=== PATIENT | male | born 1945 | race Caucasian/White ===

== ENCOUNTER 2017-10-13 15:40 | Inpatient (IN) | payer OTHER, BC ==
[~2017-10-13] VITALS: Ht 182.9 cm; Wt 71.0 kg
[~2017-10-13 15:40] MED LIST: ALENDRONATE SOD70 M2 PO; CARBAMAZEPINE100 MG PO; OXYBUTYNIN CHLO10 MG PO; PRIMIDONE250 MG PO; TEGRETOL200 MG PO
--- NOTE | 2017-10-13 16:12 | NUR ---
REC'D PT FROM AMBULANCE AAOX4. PT DENIES ANY PAIN AT THIS TIME. NO SKIN BREAK DOWN NOTED. DECREASED MOBILITY NOTED ON LEFT ARM AND LEG FROM BRAIN SURGERY. BREATHING E/U. NO SOB. WILL CONTINUE TO MONITOR.
--- NOTE | 2017-10-13 16:52 | NUR ---
SHANEKA LEMUS CALLED STATING, "I AM THE SISTER OF THE PATIENT AND POWER OF FIELD SALES MANAGER, I WANTED TO INFORM YOU GUYS THAT HE LIVES ALONE IN [place] AND I LIVE IN [place], HE HAS A HISTORY OF SEIZURES BUT IS NON-COMPLIANT AND THREW OUT HIS PRESCRIBED MEDICATIONS, HE IS UNCOOPERATIVE AND COMBATITIVE AT TIMES, MY NUMBER IS [phone]". INFORMED DR. SABILLON.
[2017-10-13 16:54] LABS: UA SPECIFIC GRAVITY 1.015 (1.005-1.035); microscopic required? YES; urine erythrocyte 3+ (NEGATIVE)
--- NOTE | 2017-10-13 17:24 | NUR ---
PT STATES, "I REFUSE ALL CARE HERE, [facility], I'M GOING HOME. EXPLAINED BENEFITS VERSUS RISKS. PATIENT STILL REQUESTS TO LEAVE." INFORMED SISTER JYOTI LEAL.
--- NOTE | 2017-10-13 17:34 | NUR ---
PT REFUSES TO SIGN AMA PAPERWORK. PT STATES "I'M NOT SIGNING ANYTHING, I'LL WAIT HERE UNTIL THE TAXI COMES AND I'M GONE, THAT'S IT" INFORMED DR. SABILLON.
--- NOTE | 2017-10-13 17:49 | NUR ---
JAYSON DE LA ROSA CALLED TO SPEAK WITH PATIENT, PATIENT NOW VERBALIZES, "OKAY, I AM WILLING TO GET ADMITTED AND STAY ONLY ONE NIGHT AND I WILL SIGN MYSELF OUT TOMORROW MORNING." INFORMED DR. SABILLON
--- NOTE | 2017-10-13 17:56 | NUR ---
INFORMED PATIENT THAT ADMISSION IS PROCESS, PT STATES, "WHAT IS THE PROBLEM, FINISH THE PROCESS, DO I HAVE TO HIT YOU OVER THE HEAD WITH MY CANE?"
--- NOTE | 2017-10-13 18:07 | NUR ---
PT WANTS TO SEE ADMITTING AND "SIGN PAPERS" FOR ADMISSION PRIOR TO GETTING AN IV STARTED, CALLED ADMITTING AND REPORTS THAT ELVIE WILL COME TO SEE PT; DR. SABILLON SPOKE WITH PT AND PT AGREEING TO BE ADMITTED FOR "ONE NIGHT"
[2017-10-13] MEDS ORDERED: TEGRETOL200 MG PO (18:20)
[2017-10-13] MEDS ORDERED: MYS250 PO (18:20)
--- NOTE | 2017-10-13 18:23 | NUR ---
INFORMED LAB THAT PT WILL BE STAYING AND LABS TO BE DRAWN BEFORE PT ADMIT UPSTAIRS, PT AWARE OF PLAN OF CARE
[2017-10-13 18:45] LABS: AMPHETAMINE QUAL UR NONE DETECTED (NEG <=1000)
[2017-10-13 19:08] LABS: BASOPHIL % 0.3 % (0-2); PLATELET COUNT 321 x10^3mcL (130-400)
[2017-10-13 19:10] LABS: RED CELL DISTRIBUTION WIDTH 14.6 % (11.5-14.5)
--- NOTE | 2017-10-13 19:13 | NUR ---
PROVIDED REPORT TO REHAN ELY FOR CONTINUITY OF CARE IN [facility]
[2017-10-13 19:18] LABS: CALCIUM 9.4 mg/dL (8.5-10.1); CARBON DIOXIDE 28.7 mmol/L (21-32); CHLORIDE SERUM 103 mmol/L (98-107); CREATININE SERUM 1.2 mg/dL (0.7-1.3); GFR1 > 60 mL/min; GLUCOSE SERUM 84 mg/dL (74-106); POTASSIUM SERUM 3.8 mmol/L (3.5-5.1); SODIUM SERUM 142 mmol/L (136-145)
[2017-10-13 19:23] LABS: ALBUMIN 3.9 g/dL (3.4-5.0); ALKALINE PHOSPHATASE 78 U/L (46-116); ALT/SGPT 16 U/L (16-63); AST/SGOT 22 U/L (15-37); BILIRUBIN TOTAL 0.4 mg/dL (0.20-1.00); TOTAL PROTEIN, SERUM 8.2 g/dL (6.4-8.2)
[2017-10-13 19:33] LABS: FREE T4 0.65 ng/dL (0.76-1.46); FREE THYROXINE INDEX 2.2 ug/dL (1.4-4.5); T4(THYROXINE) 6.8 ug/dL (4.7-13.3)
[2017-10-13 19:49] LABS: MAGNESIUM 2.3 mg/dL (1.8-2.4); PHOSPHOROUS 3.3 mg/dL (2.5-4.9)
[2017-10-13 19:59] VITALS: BP 144/69
--- NOTE | 2017-10-13 20:10 | NUR ---
RECEIVED PATIENT FROM ED VIA GUERNEY, PATIENT A/O X 2 CONFUSED AT TIMES, PATIENT WITH LEFT SIDED WEAKNESS CANE AT BEDSIDE, TELE # 22 SR, IV ACCESS TO RAC WNL, NO C/O PAIN AT THIS TIME, ORIENTED PATIENT TO ROOM AND SURROUNDINGS, BED IN LOW POSITION, BED RAILS UP X 2, CALL LIGHT WITHIN REACH, WILL ENDORSE CARE TO PRIMARY NURSE REHAN ELY
[2017-10-13 20:25] LABS: T3 TOTAL 0.71 ng/mL
[2017-10-13 21:00] VITALS: BP 144/69
--- NOTE | 2017-10-13 21:00 | NUR ---
PUT SEIZURE PADS TO BED RAILS PER SEIZURE PROTOCOL AND HISTORY OF SEIZURES. CALL LIGHT WITHIN REACH AND CONNECTED TO IVF.
[2017-10-13] MEDS ORDERED: PEPCID20 MG PO ×2 (21:25→21:29)
[2017-10-13] MEDS ORDERED: AMIODARONE HCL200 MG PO (21:26)
[2017-10-13] MEDS ORDERED: TAMSULOSIN HYD0.4 M1 PO (21:27)
[2017-10-13] MEDS ORDERED: DEPAKOTE250 MG PO (21:28)
--- NOTE | 2017-10-14 | NUR ---
PATIENT QUIETLY RESTING IN BED. NO S/SX OF DISTRESS NOTED. NO SEIZURE ACTIVITY NOTED. CALL LIGHT WITHIN REACH.
[2017-10-14 05:51] VITALS: BP 145/57
[2017-10-14 06:18] LABS: BASOPHIL % 0.8 % (0-2); PLATELET COUNT 226 x10^3mcL (130-400); RED CELL DISTRIBUTION WIDTH 14.4 % (11.5-14.5)
--- NOTE | 2017-10-14 06:44 | NUR ---
NEW IV SITE TO RIGHT FOREARM 22 GUAGE. PATIENT TOLERATED WELL. CONTINUED IVF AT 100ML/HR. PATIENT DENIES ANY PAIN. NO SEIZURE ACTIVITY NOTED.
[2017-10-14 06:50] LABS: CALCIUM 8.9 mg/dL (8.5-10.1); CARBON DIOXIDE 26.4 mmol/L (21-32); CHLORIDE SERUM 108 mmol/L (98-107); CREATININE SERUM 1.1 mg/dL (0.7-1.3); GFR1 > 60 mL/min; GLUCOSE SERUM 79 mg/dL (74-106); POTASSIUM SERUM 3.7 mmol/L (3.5-5.1); SODIUM SERUM 143 mmol/L (136-145)
[2017-10-14 07:20] VITALS: BP 140/62
--- NOTE | 2017-10-14 07:20 | NUR ---
PATIENT AWAKE, ALERT, NO SIGNS OF DISTRESS NOTED, DENIES CHEST PAIN, NO DIZZINESS. TELE# 22, HR 74, SCD'S IN PLACE, ON ROOM AIR, SPO2 99%, DENIES COUGH. NS INFUSING TO RFA AT 100 ML/HR, NO REDNESS NOR INFILTRATION NOTED TO SITE. CALM AND COOPERATIVE WITH CARE, CANE AT BEDSIDE, SEIZURE PRECAUTIONS IN PLACE, CALL LIGHT WITHIN REACH, WILL CONTINUE TO MONITOR.
--- NOTE | 2017-10-14 08:45 | NUR ---
ROUNDS MADE AT THIS TIME WITH MD TEAM, CHARGE NURSE DARELL, AND DR SHI. PATIENT AWAKE, ALERT, ALL QUESTIONS AND CONCERNS ADDRESSED, ALL SAFETY MEASURES IN PLACE, WILL CONTINUE TO MONITOR.
[2017-10-14 09:00] VITALS: BP 111/71
--- NOTE | 2017-10-14 12:40 | NUR ---
PATIENT AWAKE, ALERT, SITTING UP AT EDGE OF BED EATING LUNCH, NO SIGNS OF DISTRESS NOTED. ALL NEEDS ATTENDED TO, ALL SAFETY MEASURES IN PLACE, WILL CONTINUE TO MONITOR.
--- NOTE | 2017-10-14 14:05 | NUR ---
Initial Nutrition Assessment Dx: Gravely disabled, UTI PMHx: Left sided hemipariesis, Right broken shoulder blade history, Osteoporosis Right Temporal Lobectomy and Seizure disorder/ Epilepsy PSHx: Right temporal lobectomy (1998) Labs: (10/14) B, BUN:21H, H/H:11.6/35L(10/13) HDL:75H, Meds: Colace, Depakote, Lactinex, NS IV, Pepcid, Synthroid, Zofran Diet:Regular PO Intake:(10/14) B:100%, L:100% Ht: 72in, 6ft Wt: 153#, 69.42kg BMI: 20.8kg/m2 (normal) IBW: 178#, 81kg %IBW: 86% UBW:does not know Age:72y/o male Food Allergies:NKFA Skin: intact Tan:18 Edema:None GI: active bowel souds Last BM:10/13 Nursing Trigger: appears underwt/malnourished, admitted with potential risk diagnosis, poor PO intake>3days and unable to ingest diet for age. Pt admitted for nbeing gravely disabled and with a UTI per admission assessment. Per bed huddle this morning, pt wanted to leave AMA but decided to stay if a bed can be found for him in the [place]. During visit, observed pt sitting at the edgde of his bed eating lunch. Pt with no c/o N/V/D/C and with good appetite. Problem with: N: No V: No D: No C:No Problems with: ChewingNo: Swallowing: No Current appetite: Good Recent wt change:N/A %wt change:N/A Vitamin/Supplement use:No Special diet at home:Regular Physical activity: No Education: Pt declined nutrition education at this time Estimated Nutritional Needs Based on actual body weight 69kg Energy: 1725-2070kcal/d (25-3.0kcal/kg for maintenance) Protein: 69g/d (1.0g/kg for maintenance) Fluid: 1725-2070ml/d (1 ml/kcal) or per doctor Nutrition Diagnosis 1. No nutrition diagnosis at this time. Intervention 1. Recommend continue with current Regualr diet. Monitor/Evaluate Goal: PO intake at least 75% of estimated needs Monitor: PO intake, Labs, GI function F/U in 7 days as low risk:10/21
--- NOTE | 2017-10-14 14:06 | NUR ---
1. Recommend continue with current Regualr diet.
[2017-10-14 14:19] VITALS: BP 132/67
--- NOTE | 2017-10-14 15:36 | NUR ---
PATIENT AWAKE, ALERT, WATCHING TV, NO SIGNS OF DISTRESS NOTED, ALL NEEDS ATTENDED TO, WILL CONTINUE TO MONITOR.
--- NOTE | 2017-10-14 17:48 | NUR ---
PATIENT AWAKE, ALERT, SITTING UP AT EDGE OF BED, EATING DINNER, NO SIGNS OF DISTRESS NOTED. ALL NEEDS ATTENDED TO, ALL SAFETY MEASURES IN PLACE, WILL CONTINUE TO MONITOR.
[2017-10-14 17:53] VITALS: BP 139/64
--- NOTE | 2017-10-14 19:16 | NUR ---
BEDSIDE REPORT GIVEN TO NOC SHIFT NURSE AT THIS TIME. PATIENT AWAKE, ALERT, NO SIGNS OF DISTRESS NOTED, WILL ENDORSE CARE.
--- NOTE | 2017-10-14 19:30 | NUR ---
RECEIVED REPORT FROM DAY SHIFT RN. PT RESTING IN BED COMFORTABLY. A&O TO PERSON AND PLACE, REORIENTED TO TIME. NO SOB ON ROOM AIR. NO C/O PAIN. NO DISTRESS NOTED. IV ON RFA, NS INFUSING. SAFETY MEASURES IN PLACE. BED IN LOWEST POSITION. SIDE RAIL PADS IN PLACE. INSTRUCTED PT TO USE THE CALL LIGHT IF ASSISTANCE IS NEEDED. CALL LIGHT WITHN REACH.
[2017-10-14 21:29] VITALS: BP 151/70
[2017-10-15 05:00] VITALS: BP 130/53
--- NOTE | 2017-10-15 06:53 | NUR ---
PT SLEPT WELL DURING SHIFT. NO SOB. NO C/O PAIN. NO DISTRESS NOTED. SAFETY MEASURES MAINTAINED. ALL NEEDS ATTENDED TO. CALL LIGHT WITHIN REACH. WILL ENDORSE CONTINUITY OF CARE TO ONCOMING RN.
[2017-10-15 07:00] LABS: BASOPHIL % 0.5 % (0-2); PLATELET COUNT 238 x10^3mcL (130-400); RED CELL DISTRIBUTION WIDTH 14.2 % (11.5-14.5)
--- NOTE | 2017-10-15 07:20 | NUR ---
RECEIVED PATIENT AWAKE/ALERT IN BED, NO DISTRESS NOTED, DENIES PAIN, TELE # 22 NOTED. IV INTACT AND INFUSING WELL TO RFA; LEFT ARM WEAKNESS NOTED; POC EXPLAINED; URINAL AND CANE NEXT TO PATIENT PER REQUEST. CALL LIGHT WITHIN REACH.
--- NOTE | 2017-10-15 08:52 | NUR ---
DR. SHI ROUND WITH MEDICAL TEAM DISCUSS WITH PATIENT PLAN TO DISCHARGE HOME TODAY ON ORAL ABX.
--- NOTE | 2017-10-15 09:49 | NUR ---
PATIENT RESTING IN BED NO COMPLAINT, ALL DUE MEDS GIVEN. NEEDS ANTICIPATED. CALL LIGHT WITHIN REACH.
--- NOTE | 2017-10-15 09:53 | NUR ---
DR. BACA AT BEDSIDE SPEAK WITH PATIENT.
[2017-10-15 10:12] VITALS: BP 155/66
--- NOTE | 2017-10-15 10:15 | NUR ---
ASSISTING PATIENT TO BATHROOM LEFT SIDE WEAKNESS AND GAIT SLOW BUT ABLE TO WALK WITH CANE AND MIN ASSISTED; INSTRUCT PATIENT TO PULL CORD WHEN READY TO WALK BACK TO BED.
--- NOTE | 2017-10-15 10:30 | NUR ---
PATIENT UP WALKING WITH PT IN THE HALLWAY AT THIS TIME.
--- NOTE | 2017-10-15 12:54 | NUR ---
PATIENT SAT UP IN CHAIR FOR LUNCH, NO COMPLAINT. DUE MEDS GIVEN. NEEDS ANTICIPATED. CALL LIGHT WITHIN REACH.
--- NOTE | 2017-10-15 15:29 | NUR ---
SPOKE TO VIELKA DYE CM RE UPDATE POC TO PATIENT'S SISTER; PER VIELKA RICE JANUARY ALREADY UPDATE PATIENT'S SISTER 3 TIMES TODAY. PLAN FOR D/C TOMORROW AND NEED 24 HRS CARE-BUDGET ACCOUNTANT D/T PATIENT SAFTEY ISSUE.
--- NOTE | 2017-10-15 17:26 | NUR ---
PATIENT SAT UP IN CHAIR TALKING TO SS JANUARY AT BEDSIDE, NO COMPLAINT. DUE MEDS GIVEN. STOP IV PUMP NOTED IV SITE RED AND SWELLING; PATIENT DENIES PAIN AT THE SITE WILL RESTART NEW IV WHEN SS JANUARY DONE WITH PATIENT. CALL LIGHT WITHIN REACH.
[2017-10-15 17:43] VITALS: BP 140/67
--- NOTE | 2017-10-15 19:01 | NUR ---
ASSIST PATIENT BACK TO BED GAIT VERY UNSTEADY TAKE MAX ASSIST 2 STAFFS AND PATIENT DIDN'T WANT TO HELP CONFUSED WANT TO GO HOME; STATE " MY COME TO GET ME HOME." REPOSITION UP IN BED. BED ALARM ACTIVATED. RESTART NEW IV TO RFA # 22G X2 ATTEMPTED; CONT IVF ORDER. CALL LIGHT WITHIN REACH. PATIENT SIPPING ON COFFE.
[2017-10-15 19:30] VITALS: BP 144/64
--- NOTE | 2017-10-15 19:30 | NUR ---
RECEIVED PT AT THE EDGE OF THE BED INSISTING TO GET UP AND LOOKING FOR HIS WHO A COUPLE YEARS AGO.CONFUSED AND DISORIENTED.REALITY ORIENTATION BUT INEFFECTIVE.PT STARTING TO GET PHYSICAL AND VERBALLY ABUSIVE TOWARDS STAFF.HANDLED GENTLY AND REPOSITIONED BACK TO BED AND STILL INSISTING TO GET OOB.PERIPHERAL IV TO RFA WITH NEEDLE COMING OUT.NO BLEEDING NOTED.CALLED DR. WASSERMAN AND MADE AWARE AND GOT ORDER FOR RESTRAINTS.BILATERAL WRIST RESTRAINTS APPLIED.WILL OBSERVE PROTOCOL.WILL CONTINUE TO MONITOR.
--- NOTE | 2017-10-15 19:45 | NUR ---
CALLED SISTER -SHANEKA LEMUS([place]) AND LEFT MESSAGE.
--- NOTE | 2017-10-15 19:50 | NUR ---
SISTER CALLED BACK AND MADE AWARE OF RESTRAINT INITIATION AND GAVE CONSENT FOR USE.
--- NOTE | 2017-10-15 20:30 | NUR ---
PT REMAINS RESTLESS TRYING TO GET OFF RESTRAINTS.DANGLING FEET BY THE RAILS AND WITH ATTEMPTS TO KICK STAFF.APPROACHED CALMLY AND CONTINOUS REORIENTATION PROVIDED.CONFUSED AND DISORIENTED.NO SEIZURE ACTIVITY NOTED,PADDED RAILS IN PLACED.NURSE AT BEDSIDE TO ASSIST WITH ADLS.WILL CONTINUE TO MONITOR.
--- NOTE | 2017-10-15 20:40 | NUR ---
REFUSED ALL PO MEDS AT THIS TIME.WILL OFFER AGAIN LATER ONCE PT IS CALMER.
--- NOTE | 2017-10-16 04:56 | NUR ---
PT SLEPT WITH INTERVALS.REMAINS WITH ATTEMPTS OF TRYING TO GET OFF RESTRAINTS.CALLING OUT FOR HIS WHEN AWAKE.REALITY ORIENTATION PROVIDED BUT INEFFECTIVE.BILATERAL SOFT WRIST RESTRAINTS IN PLACED.NO SEIZURE ACTIVITY NOTED.PADDED RAILS IN PLACED.NURSE AT BEDSIDE TO ASSIST WITH ADL'S.ALL NEEDS MET.WILL CONTINUE TO MONITOR.
[2017-10-16 05:42] VITALS: BP 166/75
--- NOTE | 2017-10-16 06:32 | NUR ---
BEDBATH GIVEN AT THIS TIME.PT MORE ALERT BUT STILL WITH SOME CONFUSION.ABLE TO CONVERSE WITH STAFF.APPEARS CALM AND FOLLOWS COMMAND.RELEASE RESTRAINT AT THIS TIME.WILL CONTINUE TO MONITOR.NURSE AT BEDSIDE TO ASSIST WITH ADLS.
--- NOTE | 2017-10-16 07:20 | NUR ---
RECEIVED PATIENT ASLEEP NO DISTRESS NOTED; IV SALINE LOCK NOTED. RESTRAINT OFF AT THIS TIME. SITTER REMAIN AT BEDSIDE. WILL ASSESS PATIENT WHEN AWAKEN. CALL LIGHT WITHIN REACH.
[2017-10-16 07:29] LABS: BASOPHIL % 0.3 % (0-2); PLATELET COUNT 265 x10^3mcL (130-400)
[2017-10-16 07:35] LABS: CALCIUM 8.6 mg/dL (8.5-10.1); CARBON DIOXIDE 26.3 mmol/L (21-32); CHLORIDE SERUM 105 mmol/L (98-107); GFR1 > 60 mL/min; GLUCOSE SERUM 88 mg/dL (74-106); POTASSIUM SERUM 3.2 mmol/L (3.5-5.1); SODIUM SERUM 142 mmol/L (136-145)
[2017-10-16 07:40] LABS: RED CELL DISTRIBUTION WIDTH 14.8 % (11.5-14.5)
--- NOTE | 2017-10-16 09:00 | NUR ---
PATIENT ATTEMPT GET OOB AND GETTING AGGRESIVE TOWARD BLOCK SETTER GYPSUM'S; RESTRAINT IN PLACE. WILL NOTIFIED DR. BARGER.
--- NOTE | 2017-10-16 09:35 | NUR ---
DR. CASTILLO ON-CALL FOR DR. BARGER WAS AWARE PATIENT ON RESTRAINT AND ORDER HALDOL IM; HALDOL 5MG IM GIVEN; PATIENT REFUSED ORAL MEDS. CONT TO MONITOR.
[2017-10-16 10:24] VITALS: BP 164/78
--- NOTE | 2017-10-16 11:05 | NUR ---
PATIENT SLEEPING AT THIS TIME, BILAT SOFT WRIST AND BILAT SOFT ANKLE RESTRAINT IN PLACE; CIRCULATION CHECK WNL; CONNECT TO IV NS @ 100ML/HR. CONT TO MONITOR.
--- NOTE | 2017-10-16 12:43 | NUR ---
DR. BARGER ON THE FLOOR UPDATE PATIENT'S CONDITION; ELEVATED WBC 16.6 AND K 3.2 PER DOCTOR WILL F/U URINE CULTURE.
--- NOTE | 2017-10-16 13:03 | NUR ---
PATIENT AWAKE/ALERT ASKING NURSE TO RELEASE THE SOFT WRIST RESTRAINT AND PROMISE "I'M NOT HIT ANYONE". TALK PATIENT INTO EATING LUNCH WITH FLUSH TESTER ASSIST PATIENT AGREE AND AGREE TO TAKE MEDS. REPOSITION PATIENT UP IN BED STILL KEEP RESTRAINT TO RT WRIST STRONG SIDE; REHAN ASSISTING PATIENT WITH HOS LUNCH; DUE MEDS GIVEN WITHOUT DIFFICULTY. CONT TO MONITOR.
[2017-10-16 15:05] LABS: BASOPHIL % 0.3 % (0-2); PLATELET COUNT 240 x10^3mcL (130-400); RED CELL DISTRIBUTION WIDTH 14.3 % (11.5-14.5)
--- NOTE | 2017-10-16 15:10 | NUR ---
PATIENT SLEEPING AT THIS TIME, RT SOFT WRIST RESTRAINT IN PLACE. CIRCULATION CHECKED WNL. CONT TO MONITOR.
--- NOTE | 2017-10-16 15:47 | NUR ---
PT NOTES SPOKE W/ RN REGARDING PATIENT IN A.M. & RN STATED TO HOLD TX D/T PATIENT MEDICATED W/ "HALDOL." RN REPORTS PATIENT WAS COMBATIVE & REQUIRED TO BE PLACED ON RESTRAINTS. FOLLOWED UP IN THE P.M. 1410 & RN CLEARED PATIENT FOR TX, HOWEVER PATIENT DECLINED TO PARTICIPATE. PATIENT REPORTS OF FEELING FATIGUE. ENCOURAGED TO PARTICIPATE & EDUCATED ON THE COMPLICATIONS OF PROLONGED BED REST, BUT STILL DECLINE. WILL FOLLOW UP TOMORROW. PRIMARY PHYSICAL THERAPIST AWARE. PVE(2)
--- NOTE | 2017-10-16 17:53 | NUR ---
PATIENT CALM AT THIS TIME, SEARCH MANAGER ASSISTING FEEDING PATIENT AT THIS TIME; DUE MEDS GIVEN. RT WRIST SOFT RESTRAINT IN PLACE; CIRCULATION WNL. NEEDS ANTICIPATED.
--- NOTE | 2017-10-16 18:17 | NUR ---
PATIENT REMAIN CALM EATING NO COMPLAINT, SEROQUEL 25MG PO GIVEN W/O PROBLEM.IVF REPLACED. CONT TO MONITOR.
--- NOTE | 2017-10-16 18:43 | NUR ---
PATIENT'S SISTER -LUIS CALL; UPDATE PATIENT CONDITION AND PATIENT ON RESTRAINT FOR SAFETY AND PREVENT PATIENT FROM PULLING IV AND FALLING.
--- NOTE | 2017-10-16 19:30 | NUR ---
RECEIVED PT ASLEEP BUT EASILY AROUSABLE.APPEARS CALM AND NO AGITATION.CONFUSED AND DISORIENTED.NURSE AT BEDSIDE TO ASSIST WITH ADLS.R WRIST RESTRAINT IN PLACED WITH GOOD CIRCULATION.NO S/S OF PAIN OR DISCOMFORT.WILL CONTINUE TO MONITOR.
--- NOTE | 2017-10-17 04:49 | NUR ---
PT SLEPT WELL ALL NIGHT.NO EPISODES OF AGITATION TOWARDS STAFF.A/O X2 AND ABLE TO MAKE NEEDS KNOWN.RESTRAINT TO R WRIST IN PLACED WITH GOOD CIRCULATION.NURSE AT BEDSIDE TO ASSIST WITH ADLS.NO ASE NOTED FROM ROCEPHIN IV ATB.NO SEIZURE ACTIVITY NOTED.PADDED RAILS IN PLACED.ALL NEEDS ANTICIPATED.WILL CONTINUE TO MONITOR.
[2017-10-17 05:58] LABS: BASOPHIL % 0.8 % (0-2); PLATELET COUNT 242 x10^3mcL (130-400); RED CELL DISTRIBUTION WIDTH 14.1 % (11.5-14.5)
[2017-10-17 06:08] VITALS: BP 138/66
[2017-10-17 06:12] LABS: CALCIUM 8.3 mg/dL (8.5-10.1); CARBON DIOXIDE 27.7 mmol/L (21-32); CHLORIDE SERUM 108 mmol/L (98-107); CREATININE SERUM 0.9 mg/dL (0.7-1.3); GFR1 > 60 mL/min; GLUCOSE SERUM 91 mg/dL (74-106); PHOSPHOROUS 3.6 mg/dL (2.5-4.9); POTASSIUM SERUM 3.9 mmol/L (3.5-5.1); SODIUM SERUM 139 mmol/L (136-145)
--- NOTE | 2017-10-17 07:23 | NUR ---
PT RECEIVED AND SEEN. PT IS OCCASIONALLY CONFUSED, BUT ORIENTED TO PERSON PLACE AND TIME. PT HAS BEEN PULLING AT LINES AND HAS BEEN KICKING AT STAFF MEMBERS SO HE IS USING SOFT WRIST RESTRAINT ON RIGHT SIDE. CIRCULATION WNL. PATIENT IS MED SURG NO TELE. DENIES CHEST PAIN. SCDS IN PLACE. PT HAS LEFT SIDED WEAKNESS AND HEMIPARESIS. USES CANE AT HOME. SKIN INTACT. NS INFUSING PER ORDER, APPEARS WNL. CALL LIGHT WITHIN REACH. PATIENT HAS STAFF MEMBER AT BEDSIDE FOR SAFETY.
--- NOTE | 2017-10-17 08:10 | NUR ---
PATIENT RESTRAINTS HAVE BEEN REMOVED. PATIENT APPEARS CALM AT THIS TIME. CIRCULATION WNL. BATCH MIXING TRUCK DRIVER AT BEDSIDE FOR SAFETY. WILL CONTINUE TO MONITOR PATIENT AT THIS TIME.
--- NOTE | 2017-10-17 09:20 | NUR ---
DR SHI AND MEDICAL TEAM VISITED PATIENT AT BEDSIDE TODAY. UPDATED PATIENT ON PLAN OF CARE. PATIENT AGREEABLE TO PLAN OF CARE AT THIS TIME. WILL CONTINUE TO MONITOR.
[2017-10-17 09:40] VITALS: BP 139/62
[2017-10-17] MEDS ORDERED: SEROQUEL25 MG PO (12:08)
[2017-10-17] MEDS ORDERED: KEFLEX500 M1 PO (12:16)
[2017-10-17] MEDS ORDERED: LAC PO (12:16)
[2017-10-17 13:13] VITALS: BP 139/62
--- NOTE | 2017-10-17 14:00 | NUR ---
PATIENT RESTING IN BED AT THIS TIME. NO ACUTE CHANGES TO CONDITION. PATIENT IS CALM. NO SIGNS OF ACUTE DISTRESS. RESPIRATIONS EVEN AND UNLABORED ON ROOM AIR. CALL LIGHT WITHIN REACH. WILL CONTINUE TO MONITOR.
--- NOTE | 2017-10-17 16:22 | NUR ---
PHYSICAL THERAPY DAILY NOTES CO-SIGN All documentation done by the Gas Fitter Apprentice for 10/17/17 has been reviewed. I agree with the documentation. Reviewed/Co-Signed by: Vivian Be PT Documentation Done by:KATHY [place] ASSISTANT GUEST SERVICES MANAGER POC REVIEWED W/ ASSISTANT GUEST SERVICES MANAGER; WILL BENEFIT W/ P.T. AFTER ACUTE STAY.
--- NOTE | 2017-10-17 18:40 | NUR ---
DISCHARGE TEACHING PERFORMED FOR PATIENT AND CAREGIVER AT BEDSIDE. PATIENT AND CAREGIVER RECEIVED DISCHARGE PACKET WITH WRITTEN PRESCRIPTIONS FOR PATIENT MEDICINE. ALL QUESTIONS ANSWERED AT THIS TIME.
--- NOTE | 2017-10-17 19:00 | NUR ---
PATIENT HAS BEEN DISCHARGED. PATIENT REMOVED ALL PERSONAL BELONGINGS FROM ROOM, INCLUDING DISCHARGE PACKET AND PRESCRIPTIONS. PATIENT HAS LEFT WITH CAREGIVER WHO WILL TAKE HIM HOME. IV REMOVED WITH CATHETER TIP INTACT, NO BLEEDING NOTED. IV SITE COVERED WITH STERILE BANDAGE. PATIENT WAS ESCORTED OUT BY HOSPITAL STAFF MEMBER VIA WHEELCHAIR.
== END 2017-10-17 18:44 | disposition home health service (06) | DRG 689 ==
LOC: ED 15:40 → MU 18:06 → DU 18:06 → MU 10-15 10:08
PROVIDERS: Emergency Medicine; ADMIT Family Medicine
DX: N39.0 Urinary tract infection, site not specified (principal); N17.0 Acute kidney failure with tubular necrosis; G93.41 Metabolic encephalopathy; G93.1 Anoxic brain damage, not elsewhere classified; G40.802 Other epilepsy, not intractable, without status epilepticus; G81.94 Hemiplegia, unspecified affecting left nondominant side; F07.0 Personality change due to known physiological condition; R31.9 Hematuria, unspecified; E87.6 Hypokalemia; M81.0 Age-related osteoporosis without current pathological fracture; D64.9 Anemia, unspecified; E03.9 Hypothyroidism, unspecified; Z68.20 Body mass index [BMI] 20.0-20.9, adult
CPT/HCPCS: 83880; 84439; 97110-GP; 97116-GP; 97530-GP; J0696; J1200; J1630; J3480; J7030

== ENCOUNTER 2017-10-18 01:37 | Emergency (ER) | payer OTHER, BC ==
[~2017-10-18] VITALS: Ht 182.9 cm; Wt 68.0 kg
[~2017-10-18 01:37] MED LIST changes: +AMIODARONE HCL200 MG PO; +DEPAKOTE250 MG PO; +KEFLEX500 M1 PO; +LAC PO; +MYS250 PO; +PEPCID20 MG PO; +SEROQUEL25 MG PO; +TAMSULOSIN HYD0.4 M1 PO
[2017-10-18 12:32] VITALS: BP 131/77
== END 2017-10-18 13:21 | disposition home or self-care (01) ==
LOC: ED 01:37
DX: Z00.8 Encounter for other general examination (principal); L22 Diaper dermatitis

== ENCOUNTER 2017-11-03 23:38 | Emergency (ER) | payer OTHER, BC ==
[2017-11-04 00:43] LABS: BASOPHIL % 0.2 % (0-2); PLATELET COUNT 310 x10^3mcL (130-400)
[2017-11-04 00:50] LABS: RED CELL DISTRIBUTION WIDTH 15.7 % (11.5-14.5)
[2017-11-04 00:53] LABS: CALCIUM 8.9 mg/dL (8.5-10.1); CARBON DIOXIDE 26.5 mmol/L (21-32); CREATININE SERUM 1.3 mg/dL (0.7-1.3); POTASSIUM SERUM 3.7 mmol/L (3.5-5.1)
[2017-11-04 00:59] LABS: microscopic required? YES; urine erythrocyte 1+ (NEGATIVE)
[2017-11-04 01:07] LABS: ALBUMIN 3.6 g/dL (3.4-5.0); BILIRUBIN TOTAL 0.3 mg/dL (0.20-1.00); TOTAL PROTEIN, SERUM 7.3 g/dL (6.4-8.2)
[2017-11-04 01:09] LABS: T4(THYROXINE) 3.4 ug/dL (4.7-13.3)
[2017-11-04 01:25] LABS: AMPHETAMINE QUAL UR NONE DETECTED (NEG <=1000)
[2017-11-04 01:33] LABS: AMYLASE 45 U/L (25-115); CALCIUM 8.7 mg/dL (8.5-10.1); CHOLESTEROL 118 mg/dL (<200); HDL CHOLESTEROL 71 mg/dL (40-60); LIPASE 123 IU/L (73-393); MAGNESIUM 2.2 mg/dL (1.8-2.4)
[2017-11-04 03:05] VITALS: BP 127/58
[2017-11-04 09:22] VITALS: BP 105/45
--- NOTE | 2017-11-05 08:10 | NUR ---
ECHO NOT DONE PT. DISCHARGED
== END 2017-11-04 09:35 | disposition short-term general hospital (02) ==
LOC: ED 23:38
PROVIDERS: Emergency Medicine
DX: I62.00 Nontraumatic subdural hemorrhage, unspecified (principal); J18.1 Lobar pneumonia, unspecified organism; G40.909 Epilepsy, unspecified, not intractable, without status epilepticus; G81.94 Hemiplegia, unspecified affecting left nondominant side; Z98.890 Other specified postprocedural states
CPT/HCPCS: 36600; 82962; 83880; 87804; G0480; J0696; J7030; J7040; Q0092

== ENCOUNTER 2017-11-18 06:35 | Inpatient (IN) | payer OTHER, BC ==
[~2017-11-18] VITALS: Ht 182.9 cm; Wt 81.6 kg
[2017-11-18 09:24] LABS: PLATELET COUNT 344 x10^3mcL (130-400)
[2017-11-18 09:26] LABS: CALCIUM 8.5 mg/dL (8.5-10.1); CHLORIDE SERUM 104 mmol/L (98-107); CREATININE SERUM 1.1 mg/dL (0.7-1.3); GFR1 > 60 mL/min; GLUCOSE SERUM 100 mg/dL (74-106); POTASSIUM SERUM 4.2 mmol/L (3.5-5.1); RED CELL DISTRIBUTION WIDTH 15.1 % (11.5-14.5); SODIUM SERUM 139 mmol/L (136-145)
[2017-11-18 09:30] LABS: ALKALINE PHOSPHATASE 43 U/L (46-116); ALT/SGPT 20 U/L (16-63); AST/SGOT 19 U/L (15-37); BILIRUBIN TOTAL 0.4 mg/dL (0.20-1.00); TOTAL PROTEIN, SERUM 6.4 g/dL (6.4-8.2)
[2017-11-18] MEDS ORDERED: TEGRETOL200 MG PO (10:13)
[2017-11-18 10:44] LABS: BAND NEUTROPHIL 0 % (0-10); BASOPHIL 0 % (0-2); MONOCYTE 1 % (0-7); SEGMENTED NEUTROPHILS 84 % (37-75)
[2017-11-18 10:45] LABS: PLATELET MORPHOLOGY PLATELETS NORMAL
[2017-11-18 12:38] LABS: MAGNESIUM 2.2 mg/dL (1.8-2.4); PHOSPHOROUS 3.2 mg/dL (2.5-4.9)
[2017-11-18 12:44] LABS: T3 TOTAL 0.59 ng/mL
[2017-11-18 13:12] LABS: FREE T4 0.61 ng/dL (0.76-1.46); FREE THYROXINE INDEX 1.4 ug/dL (1.4-4.5); T4(THYROXINE) 4.4 ug/dL (4.7-13.3)
[2017-11-18 13:29] VITALS: BP 147/77
[2017-11-18 14:30] VITALS: BP 140/68
[2017-11-18 17:23] VITALS: BP 162/67
[2017-11-18 18:44] LABS: UA SPECIFIC GRAVITY 1.015 (1.005-1.035); microscopic required? YES; urine erythrocyte 1+ (NEGATIVE)
[2017-11-18 18:59] LABS: AMPHETAMINE QUAL UR NONE DETECTED (NEG <=1000)
[2017-11-18 19:55] VITALS: BP 140/68
[2017-11-19 06:23] VITALS: BP 143/66
[2017-11-19 07:28] LABS: BASOPHIL % 0.7 % (0-2); PLATELET COUNT 326 x10^3mcL (130-400)
[2017-11-19 07:29] LABS: RED CELL DISTRIBUTION WIDTH 15.1 % (11.5-14.5)
[2017-11-19 07:36] LABS: CALCIUM 8.2 mg/dL (8.5-10.1); CHLORIDE SERUM 105 mmol/L (98-107); CREATININE SERUM 0.8 mg/dL (0.7-1.3); GFR1 > 60 mL/min; GLUCOSE SERUM 97 mg/dL (74-106); HDL CHOLESTEROL 58 mg/dL (40-60); SODIUM SERUM 137 mmol/L (136-145); TRIGLYCERIDES 52 mg/dL (<150)
[2017-11-19 07:37] LABS: CHOLESTEROL 121 mg/dL (<200); CHOLESTEROL/HDL RATIO 2.1
[2017-11-19 10:15] VITALS: BP 145/69
[2017-11-19 14:26] LABS: RED BLOOD CELLS 3.06 M/mm3 (4.52-5.90)
[2017-11-19 14:54] LABS: IRON 32 ug/dL (65-170); TOTAL IRON BINDING CAPACITY 170 ug/dL (250-450)
[2017-11-19 20:50] VITALS: BP 112/53
[2017-11-20 05:29] VITALS: BP 136/54
[2017-11-20 07:51] LABS: BASOPHIL % 0.2 % (0-2); PLATELET COUNT 284 x10^3mcL (130-400)
[2017-11-20 07:52] LABS: RED CELL DISTRIBUTION WIDTH 15.8 % (11.5-14.5)
[2017-11-20 09:00] LABS: CALCIUM 7.7 mg/dL (8.5-10.1); CARBON DIOXIDE 20.2 mmol/L (21-32); CHLORIDE SERUM 104 mmol/L (98-107); CREATININE SERUM 1.1 mg/dL (0.7-1.3); GFR1 > 60 mL/min; GLUCOSE SERUM 128 mg/dL (74-106); MAGNESIUM 1.9 mg/dL (1.8-2.4); PHOSPHOROUS 3.2 mg/dL (2.5-4.9); POTASSIUM SERUM 3.9 mmol/L (3.5-5.1); SODIUM SERUM 136 mmol/L (136-145)
[2017-11-20 10:04] VITALS: BP 117/48
[2017-11-20 17:52] VITALS: BP 127/61
[2017-11-20 20:56] VITALS: BP 140/50
[2017-11-21 05:42] VITALS: BP 132/68
[2017-11-21 07:01] LABS: CALCIUM 7.9 mg/dL (8.5-10.1); CARBON DIOXIDE 21.6 mmol/L (21-32); CHLORIDE SERUM 102 mmol/L (98-107); CREATININE SERUM 0.9 mg/dL (0.7-1.3); GFR1 > 60 mL/min; GLUCOSE SERUM 106 mg/dL (74-106); POTASSIUM SERUM 3.8 mmol/L (3.5-5.1); SODIUM SERUM 135 mmol/L (136-145)
[2017-11-21 07:36] LABS: BASOPHIL % 0.4 % (0-2); PLATELET COUNT 266 x10^3mcL (130-400)
[2017-11-21 07:38] LABS: RED CELL DISTRIBUTION WIDTH 16.1 % (11.5-14.5)
[2017-11-21 09:09] LABS: burr cell (echinocyte) 1+; rbc morphology (normal/abnorm) ABNORMAL (NORMAL)
[2017-11-21 09:35] VITALS: BP 135/44
[2017-11-21 13:22] VITALS: BP 114/48
[2017-11-21 17:22] VITALS: BP 108/40
[2017-11-21 18:23] LABS: PLATELET COUNT 295 x10^3mcL (130-400)
[2017-11-21 18:25] LABS: RED CELL DISTRIBUTION WIDTH 16.3 % (11.5-14.5)
[2017-11-21 18:43] LABS: BAND NEUTROPHIL 2 % (0-10); MONOCYTE 16 % (0-7); SEGMENTED NEUTROPHILS 63 % (37-75)
[2017-11-21 18:44] LABS: PLATELET MORPHOLOGY PLATELETS NORMAL; burr cell (echinocyte) 2+; rbc morphology (normal/abnorm) ABNORMAL (NORMAL)
[2017-11-21 19:35] VITALS: BP 116/49
[2017-11-22 05:22] VITALS: BP 134/49
[2017-11-22 08:08] LABS: BASOPHIL % 0.6 % (0-2); PLATELET COUNT 275 x10^3mcL (130-400)
[2017-11-22 08:24] LABS: RED CELL DISTRIBUTION WIDTH 16.1 % (11.5-14.5)
[2017-11-22 09:34] LABS: CALCIUM 7.7 mg/dL (8.5-10.1); CHLORIDE SERUM 105 mmol/L (98-107); GFR1 > 60 mL/min; GLUCOSE SERUM 88 mg/dL (74-106); POTASSIUM SERUM 3.6 mmol/L (3.5-5.1); SODIUM SERUM 137 mmol/L (136-145)
[2017-11-22 09:52] VITALS: BP 111/41
[2017-11-22 11:06] LABS: rbc morphology (normal/abnorm) ABNORMAL (NORMAL)
[2017-11-22 15:06] LABS: BASOPHIL % 0.5 % (0-2); PLATELET COUNT 335 x10^3mcL (130-400)
[2017-11-22 15:17] LABS: RED CELL DISTRIBUTION WIDTH 16.4 % (11.5-14.5)
[2017-11-22 15:57] LABS: rbc morphology (normal/abnorm) ABNORMAL (NORMAL)
[2017-11-22 16:36] VITALS: BP 132/39
[2017-11-22 19:45] VITALS: BP 129/51
[2017-11-22 22:37] LABS: BASOPHIL % 0.3 % (0-2)
[2017-11-22 22:38] LABS: PLATELET COUNT 295 x10^3mcL (130-400)
[2017-11-22 22:40] LABS: RED CELL DISTRIBUTION WIDTH 15.8 % (11.5-14.5)
[2017-11-23 07:42] LABS: CALCIUM 7.9 mg/dL (8.5-10.1); CARBON DIOXIDE 24.3 mmol/L (21-32); CHLORIDE SERUM 105 mmol/L (98-107); CREATININE SERUM 0.9 mg/dL (0.7-1.3); GFR1 > 60 mL/min; GLUCOSE SERUM 89 mg/dL (74-106); MAGNESIUM 2.1 mg/dL (1.8-2.4); POTASSIUM SERUM 3.5 mmol/L (3.5-5.1); SODIUM SERUM 137 mmol/L (136-145)
[2017-11-23 08:03] LABS: BASOPHIL % 0.9 % (0-2); PLATELET COUNT 326 x10^3mcL (130-400)
[2017-11-23 09:27] LABS: RED CELL DISTRIBUTION WIDTH 15.5 % (11.5-14.5)
[2017-11-23 10:13] VITALS: BP 125/60
[2017-11-23 14:42] LABS: rbc morphology (normal/abnorm) NORMAL (NORMAL)
[2017-11-23 17:27] VITALS: BP 142/61
[2017-11-23 17:58] LABS: BASOPHIL % 0.7 % (0-2); PLATELET COUNT 414 x10^3mcL (130-400); RED CELL DISTRIBUTION WIDTH 15.9 % (11.5-14.5)
[2017-11-23 19:40] VITALS: BP 151/50
[2017-11-24 06:57] VITALS: BP 121/65
[2017-11-24 10:14] VITALS: BP 133/54
[2017-11-24 16:40] VITALS: BP 125/51
[2017-11-24 21:23] VITALS: BP 123/53
[2017-11-25 05:14] VITALS: BP 133/50
[2017-11-25 07:33] LABS: BASOPHIL % 0.9 % (0-2)
[2017-11-25 07:38] LABS: PLATELET COUNT 476 x10^3mcL (130-400); RED CELL DISTRIBUTION WIDTH 15.6 % (11.5-14.5)
[2017-11-25 09:41] VITALS: BP 133/54
[2017-11-25 17:20] VITALS: BP 141/57
[2017-11-25 20:33] VITALS: BP 141/53
[2017-11-26 05:32] VITALS: BP 141/52
[2017-11-26 10:34] VITALS: BP 131/53
[2017-11-26 17:20] VITALS: BP 144/57
[2017-11-26 21:26] VITALS: BP 138/52
[2017-11-27 05:46] VITALS: BP 158/76
[2017-11-27 09:00] VITALS: BP 128/54
[2017-11-27 17:14] VITALS: BP 111/52
[2017-11-27 21:00] VITALS: BP 120/46
[2017-11-28] VITALS (7 sets, daily range): BP systolic 124–145; BP diastolic 46–64
[2017-11-28 08:06] LABS: BASOPHIL % 0.5 % (0-2)
[2017-11-28 08:10] LABS: PLATELET COUNT 514 x10^3mcL (130-400); RED CELL DISTRIBUTION WIDTH 15.9 % (11.5-14.5)
[2017-11-28 10:17] LABS: rbc morphology (normal/abnorm) ABNORMAL (NORMAL)
[2017-11-28 11:26] LABS: microscopic required? NO
[2017-11-28 11:34] LABS: urine erythrocyte NEGATIVE (NEGATIVE)
[2017-11-28 11:51] LABS: AMPHETAMINE QUAL UR NONE DETECTED (NEG <=1000)
[2017-11-28 14:46] LABS: BASOPHIL % 0.6 % (0-2)
[2017-11-28 14:50] LABS: PLATELET COUNT 509 x10^3mcL (130-400); RED CELL DISTRIBUTION WIDTH 16.9 % (11.5-14.5)
[2017-11-28 15:00] LABS: acanthocyte (spur cell) 1+; rbc morphology (normal/abnorm) ABNORMAL (NORMAL)
[2017-11-29 00:27] LABS: BASOPHIL % 0.9 % (0-2); RED CELL DISTRIBUTION WIDTH 22.4 % (11.5-14.5)
[2017-11-29 00:34] LABS: PLATELET COUNT 512 x10^3mcL (130-400)
[2017-11-29 05:42] VITALS: BP 163/53
[2017-11-29 08:35] VITALS: BP 146/59
[2017-11-29 11:14] VITALS: Ht 182.9 cm; Wt 81.6 kg
[2017-11-29 11:31] VITALS: BP 146/59
[2017-11-29 15:29] VITALS: BP 146/59
== END 2017-11-29 17:07 | DRG 469 ==
LOC: ED 06:35 → MU 10:03 → DU 10:03 → MU 11-20 11:34
PROVIDERS: Emergency Medicine; Family Medicine; Family Medicine Sports Medicine; Neuromusculoskeletal Medicine, Sports Medicine; Student in an Organized Health Care Education/Training Program
PROC: 0SRS0JZ Replacement of Left Hip Joint, Femoral Surface with Synthetic Substitute, Open Approach (ICD-10-PCS; principal; 2017-11-19 13:00)
DX: S72.012A Unspecified intracapsular fracture of left femur, initial encounter for closed fracture (principal); N17.0 Acute kidney failure with tubular necrosis; G81.94 Hemiplegia, unspecified affecting left nondominant side; I42.9 Cardiomyopathy, unspecified; E44.0 Moderate protein-calorie malnutrition; N39.0 Urinary tract infection, site not specified; K21.9 Gastro-esophageal reflux disease without esophagitis; G40.909 Epilepsy, unspecified, not intractable, without status epilepticus; T14.90XS Injury, unspecified, sequela; R80.9 Proteinuria, unspecified; R73.03 Prediabetes; N40.0 Benign prostatic hyperplasia without lower urinary tract symptoms; D64.9 Anemia, unspecified; E03.9 Hypothyroidism, unspecified; F39 Unspecified mood [affective] disorder; Z68.24 Body mass index [BMI] 24.0-24.9, adult; Z91.81 History of falling; X58.XXXS Exposure to other specified factors, sequela; W18.09XA Striking against other object with subsequent fall, initial encounter; Y92.003 Bedroom of unspecified non-institutional (private) residence as the place of occurrence of the external cause
CPT/HCPCS: 83880; 84439; 97110-GP; 97116-GP; 97530-GP; C1776; J0690; J0696; J1644; J1885; J2175; J2250; J2270; J2405; J2704; J2916; J3010; J3490; J7030; J7040; J7120; P9016; Q0092; Q0163